=== PATIENT | male | born 1950 | race Caucasian/White ===

== ENCOUNTER 2017-01-11 22:00 | Emergency (ER) | payer SELFPAY ==
[~2017-01-11] VITALS: Ht 167.6 cm; Wt 102.3 kg
[2017-01-11 22:04] VITALS: Ht 167.6 cm; Wt 102.3 kg
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
[2017-01-11] MEDS ORDERED: ASPI-664 PO (22:31)
[2017-01-11] MEDS ORDERED: METF500T4 PO (22:32)
[2017-01-11] MEDS ORDERED: LISI1TAB4 PO (22:32)
[2017-01-11] MEDS ORDERED: TERA5CAP3 PO (22:33)
[2017-01-11] MEDS ORDERED: SIMV20TA PO (22:33)
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
[2017-01-12 00:52] VITALS: BP 161/88; PULSE 70; RESP 18; TEMP 97.4
== END 2017-01-12 00:56 | disposition home or self-care (01) ==
LOC: E/R 22:00
DX: Z04.1 Encounter for examination and observation following transport accident (principal); I10 Essential (primary) hypertension; Z79.84 Long term (current) use of oral hypoglycemic drugs; Z79.82 Long term (current) use of aspirin
CPT/HCPCS: 70450; 71010; 72125